=== PATIENT | female | born 1960 | race African-American/Black ===

== ENCOUNTER 2016-06-22 11:52 | Emergency (ER) | payer OTHER ==
[~2016-06-22] VITALS: Ht 162.6 cm; Wt 61.2 kg
[~2016-06-22 11:52] MED LIST: ONDANSETRON HCL4 M2 PO; POTASSIUM20 PO; SLOW-MAG64 MG PO
[2016-06-22 11:54] VITALS: BP 116/84
[2016-06-22] MEDS ORDERED: NAPROSYN500 MG PO (12:41)
[2016-07-03] MEDS ORDERED: ALIVE WOMEN'S1 EAC1 PO (11:46)
[2016-07-03] MEDS ORDERED: TRINATE TABLET1 TAB PO (11:46)
== END 2016-06-22 12:49 | disposition home or self-care (01) ==
LOC: ER 11:52
DX: M77.9 Enthesopathy, unspecified (principal); Z88.1 Allergy status to other antibiotic agents

== ENCOUNTER 2016-07-04 05:39 | Day surgery (SDC) | payer OTHER ==
[~2016-07-04] VITALS: Ht 162.6 cm; Wt 60.8 kg
--- NOTE | ~2016-07-04 | S ---
[facility] [place] [address] [place] [address] SURGICAL PATH RPT PROCEDURE Name: REA HENDERSON Room #: DEP [facility] M.R.#: [id number] Admission: 07/04/16 Date of : 58 Discharge: 07/04/16 Report #: [id number] Path Case #: [id number] PATHOLOGY REPORT COLLECTION DATE: 07/04/2016 RECEIVED DATE: 07/04/2016 SUBMITTING PHYS: Dr. Sathish Rosa OTHER PHYS: Dr. Jasbir Chávez SPECIMEN(S) RECEIVED: A.Lipoma upper back * * * * * * * * * * * * FINAL DIAGNOSIS: Soft tissue, upper back, excision: - Lipoma. (SKM:csd; d/t: 07/08/2016) PATHOLOGIST: Art Ruelas M.D. REPORT ELECTRONICALLY SIGNED BY: Art Ruelas M.D. DATE/TIME: 07/08/2016 10:29 * * * * * * * * * * * * GROSS PATHOLOGY: Received in formalin labeled "Rea Henderson and lipoma upper back," are few pieces of lobulated fibroadipose tissue measuring 9.7 x 9.7 x 3.3 cm in aggregate dimensions. Sectioning reveals homogeneous, bright yellow cut surfaces. [employer] sections are submitted in cassette A1. (TTL; 07/07/2016) CLINICAL HISTORY: Mass/lipoma upper back INITIAL CPT CODE(S): A; 96684 Professional services performed by [facility] at [facility] [address], [place] [address] Technical services performed by [facility] at [address] [place] [address], [address] [address]. [facility] [address] [place] [address] SURGICAL PATH RPT PROCEDURE Name: REA HENDERSON Room #: DEP [facility] Atul.#: [id number] Admission: 07/04/16 Date of : 58 Discharge: 07/04/16 Report #: [id number] Path Case #: [id number] [address] PHONE: [phone] DIRECTOR: Madhav Parker M.D. * * * END OF REPORT * * *
--- NOTE | ~2016-07-04 | O ---
[facility] [place] [address] OPERATIVE REPORT Name: TALISHA LIVE Room #: DEP [facility]#: [id number] Admission: 07/04/16 Attend Phys: Sathish Rosa MD Discharge: 07/04/16 Date of : 58 Report #: [id number] THIS REPORT FOR: //name// CC: Sathish Chávez MD DATE OF SERVICE: 07/04/2016 PREOPERATIVE DIAGNOSIS: Large mass/lipoma, upper mid back. POSTOPERATIVE DIAGNOSIS: Large mass/lipoma, upper mid back. PROCEDURE PERFORMED: Excision of a large lipoma about 12 cm in size, mid upper back. SURGEON: Sathish Rosa MD ANESTHESIA: General anesthesia. COMPLICATIONS: None. ESTIMATED BLOOD LOSS: 10 mL. PROCEDURE NOTE: With the patient in the lateral position with the right side up, the upper back was prepped and draped in sterile fashion. Timeout was performed. A 0.25% Marcaine was used to anesthetize the skin and subcutaneous tissue. The patient had a small skin irregularity that looked like a smallpox vaccination site, this was excised. The patient is going to have redundant skin anyway. After incising through the skin, this ellipse was removed. The lipoma was felt. The lipoma had numerous extension into the tissue and these were all removed. The lipoma was down to the fascia, in the very posterior aspect between different muscle group. These were removed. Excision was felt to be complete. Irrigation was performed. There was a vessel pedicle that was sutured with 4-0 PDS. Irrigation was performed. Hemostasis obtained. The subcutaneous tissue was brought together with 3-0 PDS, skin was closed with 4-0 PDS. Dermabond was applied. A#15 Richard drain was used. This was brought laterally on the right side and then sutured to the skin with a 3-0 nylon suture, 4 x 4, OpSite used for dressing. The patient tolerated the procedure and taken to recovery room. <ELECTRONICALLY SIGNED> By: Sathish Rosa MD 08/31/16 1207 [id number] Sathish Rosa MD /nt
[~2016-07-04 05:39] MED LIST changes: +ALIVE WOMEN'S1 EAC1 PO; +NAPROSYN500 MG PO; +TRINATE TABLET1 TAB PO
[2016-07-04 11:00] VITALS: BP 109/77
[2016-07-04] MEDS ORDERED: NORCO 5-325 TA1 EACH PO (13:37)
[2016-07-04 13:47] VITALS: BP 109/77
== END 2016-07-04 15:01 | disposition home or self-care (01) ==
LOC: TBA 05:39 → OR 05:39
DX: D17.1 Benign lipomatous neoplasm of skin and subcutaneous tissue of trunk (principal); Z87.891 Personal history of nicotine dependence; Z85.3 Personal history of malignant neoplasm of breast
CPT/HCPCS: 50010; 50101; 50386; 50417; 54118; 56526; 56527; 62110; 62850; 70005

== ENCOUNTER → 2016-12-16 | Outpatient (CLI) | payer OTHER ==
[~2016-12-16] MED LIST changes: +NORCO 5-325 TA1 EACH PO
--- NOTE | ~2016-12-16 | S ---
[facility] [place] [address] SURGICAL PATH RPT PROCEDURE Name: REA HENDERSON Room #: REG RAVINDRA Atul.#: [id number] Admission: 12/16/16 Date of : 58 Discharge: Report #: [id number] Path Case #: [id number] PATHOLOGY REPORT COLLECTION DATE: 12/16/2016 RECEIVED DATE: 12/16/2016 SUBMITTING PHYS: Dr. Michael Bledsoe OTHER PHYS: Dr. Jasbir Chávez ADDENDUM REPORT (Order Date: 12/19/2016 18:44) ADDENDUM COMMENT: A properly controlled immunohistochemical stain is performed. H. pylori (block A1) - negative for organisms. The final diagnosis remains unchanged. (CLW:db; 12/19/2016) Professional services performed under supervision of [facility] [employer] at [id number] [place] [id number]. Technical services performed by [facility] under supervision of a [facility] [employer] at [address] [place] [address], [address] [place] [address]. ELECTRONICALLY SIGNED BY: Chiara Webb M.D. DATE/TIME:12/19/2016 21:23 SPECIMEN(S) RECEIVED: A.Antro bx esophagus B.Distal esophagus bx C.Bx at mid esophagus * * * * * * * * * * * * FINAL DIAGNOSIS: A. Tissue submitted as "antro bx esophagus," biopsy: - Gastric antral type mucosa with mild reactive changes and mild chronic inflammation. - H. pylori stain pending and will be reported as an addendum. B. "Distal esophagus bx," biopsy: - Esophageal squamous mucosa with mild reactive changes; no significant inflammation, including eosinophils, present and no dysplasia seen. C. "Bx at mid esophagus," biopsy: - Esophageal squamous mucosa with mild reactive changes; no significant inflammation, including eosinophils, present and no dysplasia seen. COMMENT: Per the operative note, the tissue obtained in specimen A was from the gastric antrum with a request for H. pylori evaluation. Clinical [address] [address] SURGICAL PATH RPT PROCEDURE Name: REA HENDERSON Room #: [facility]#: [id number] Admission: 12/16/16 Date of : 58 Discharge: Report #: [id number] Path Case #: [id number] and endoscopic correlation is required. (CLW:; 12/18/2016) PATHOLOGIST: Chiara Webb M.D. REPORT ELECTRONICALLY SIGNED BY: Chiara Webb M.D. DATE/TIME: 12/18/2016 23:09 * * * * * * * * * * * * GROSS PATHOLOGY: A. Received in formalin labeled "Rea Henderson, antro-BX esophagus," are 3 segments of castro soft tissue measuring 1.1 x 0.2 x 0.2 cm in aggregate dimensions and ranging from 0.3 to 0.4 cm in maximum dimension. The specimen is submitted entirely in cassette A1. B. Received in formalin labeled "Rea Henderson, BX at distal esophagus," are 3 segments of white soft tissue measuring 0.9 x 0.2 x 0.1 cm in aggregate dimensions and ranging from 0.2 to 0.4 cm in maximum dimension. The specimen is submitted entirely in cassette B1. C. Received in formalin labeled "Rea Henderson, BX at mid esophagus," is a segment of castro to white soft tissue measuring 0.4 x 0.2 x 0.2 cm in maximum dimension. The specimen is submitted entirely in cassette C1. (HERIBERTO; 12/17/2016) CLINICAL HISTORY: None provided INITIAL CPT CODE(S): A; 97751, 03703 B; 95499 C; 12781 Professional services performed by [facility] at [place] [address], [place] [address] Technical services performed by [facility] at [address] [place] [address], [address], [place] [address]. [facility] [place] [address] PHONE: [phone] DIRECTOR: Madhav Parker M.D. * * * END OF REPORT * * *
== END | disposition home or self-care (01) ==
LOC: GI 07:32
DX: K29.70 Gastritis, unspecified, without bleeding (principal); K44.9 Diaphragmatic hernia without obstruction or gangrene; K21.9 Gastro-esophageal reflux disease without esophagitis
CPT/HCPCS: 62110; 62900

== ENCOUNTER 2017-01-18 10:48 | Emergency (ER) | payer OTHER ==
[~2017-01-18] VITALS: Ht 162.6 cm; Wt 59.0 kg
[2017-01-18] MEDS ORDERED: APAP500 PO (12:06)
[2017-01-18] MEDS ORDERED: TUMS PO (12:06)
[2017-01-18] MEDS ORDERED: ROBAXIN500 MG PO (12:30)
[2017-01-18] MEDS ORDERED: TRAMADOL 50 MG50 MG PO (12:30)
[2017-01-18] MEDS ORDERED: NAPROSYN500 MG PO (12:30)
== END 2017-01-18 13:31 | disposition home or self-care (01) ==
LOC: ER 10:48
DX: S39.012A Strain of muscle, fascia and tendon of lower back, initial encounter (principal); Z85.3 Personal history of malignant neoplasm of breast; Z88.1 Allergy status to other antibiotic agents; X50.1XXA Overexertion from prolonged static or awkward postures, initial encounter; Y93.89 Activity, other specified; Y92.89 Other specified places as the place of occurrence of the external cause; Y99.8 Other external cause status

== ENCOUNTER → 2019-04-20 | Outpatient (CLI) | payer OTHER ==
[~2019-04-20] MED LIST changes: +APAP500 PO; +ROBAXIN500 MG PO; +TRAMADOL 50 MG50 MG PO; +TUMS PO
[2019-04-20 10:40] LABS: CREATININE 0.8 mg/dL (0.6-1.0)
== END ==
LOC: CAT 09:51
PROVIDERS: Neuromusculoskeletal Medicine & OMM
DX: K76.0 Fatty (change of) liver, not elsewhere classified (principal); D73.89 Other diseases of spleen; K42.9 Umbilical hernia without obstruction or gangrene; M25.78 Osteophyte, vertebrae; Z98.890 Other specified postprocedural states

== ENCOUNTER → 2019-05-12 | Outpatient (CLI) | payer OTHER | LOC: ULTRA 08:59 | DX: R10.11 Right upper quadrant pain (principal) ==